=== PATIENT | male | born 1990 | race Caucasian/White ===

== ENCOUNTER 2021-10-19 15:15 | Emergency (ER) | payer SELFPAY ==
[~2021-10-19] VITALS: Ht 165.1 cm; Wt 59.0 kg
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
--- NOTE | 2021-10-19 15:41 | NUR ---
AT BED SIDE
--- NOTE | 2021-10-19 15:55 | NUR ---
X-RAY TECH. AT BED SIDE
[2021-10-19] MEDS ORDERED: KETOROLAC TROMETHAMINE INJ 60 MG/2 ML VIAL IM ONE ×2 (16:00→16:30)
[2021-10-19] MEDS ORDERED: ONDANSETRON 4 MG TAB.RAPDIS SL ONE (16:00)
[2021-10-19] MEDS ORDERED: ONDANSETRON 4 MG TAB.RAPDIS ONE ×2 (16:03→16:16)
[2021-10-19] MEDS ORDERED: KETOROLAC TROMETHAMINE INJ 30 MG/ML VIAL ONE ×2 (16:03→16:12)
[2021-10-19] MEDS ORDERED: CYCL5TAB PO (17:02)
[2021-10-19 17:26] VITALS: BP 125/80
== END 2021-10-19 17:20 | disposition home or self-care (01) ==
LOC: ER 15:18
DX: S06.0X0A Concussion without loss of consciousness, initial encounter (principal); M79.644 Pain in right finger(s); F17.210 Nicotine dependence, cigarettes, uncomplicated; M54.2 Cervicalgia; V49.59XA Passenger injured in collision with other motor vehicles in traffic accident, initial encounter; Y93.89 Activity, other specified; Y92.413 State road as the place of occurrence of the external cause; Y99.8 Other external cause status
CPT/HCPCS: 73130; 73140; 96372; 99284; 99406; J1885; Q0162